=== PATIENT | male | born 1945 | race Caucasian/White ===

== ENCOUNTER 2019-12-10 02:49 | Inpatient (IN) ==
[2019-12-10] MEDS: Nitroglycerin 0.4 MG TAB.SUBL SL PRN ×2 (02:50→02:51)
[2019-12-10] MEDS ORDERED: Nitroglycerin 0.4 MG TAB.SUBL SL ONE (02:50)
[2019-12-10] MEDS ORDERED: Isovue-370 500 ML BOTTLE IVP ONE (03:00)
[2019-12-10 03:11] LABS: Bilirubin,Urine Negative (Negative); Blood,Urine Negative (Negative); Clarity,Urine Clear (Clear); Color,Urine Yellow (Yellow); Glucose,Urine (UA) 250 mg/dL (Normal); Ketones,Urine Negative (Negative); Leukocyte Esterase,Urine Negative (Negative); Nitrite,Urine Negative (Negative); PH,Urine 7.5 pH Units (5.0-8.0); Protein,Urine 100 mg/dL (Neg-Trace); Urobilinogen,Urine Normal (Normal)
[2019-12-10 03:12] LABS: ABG Base Excess -4 mEq/L (-2 to 3); ABG HCO3 22 mEq/L (21-27); ABG Oxygen Saturation 99 % (95-98); ABG PCO2 41 mmHg (35-45); ABG PH 7.34 pH Units (7.32-7.45); ABG PO2 140 mmHg (85-104); ABG TCO2 23 mEq/L (20-26); Blood Gas Modality BiLevel
[2019-12-10 03:13] LABS: Squamous Epithelial Cell,Urine Many per lpf (None-Few)
[2019-12-10 03:18] LABS: Basophils # 0.1 K/mcL (0.0-0.2); Basophils % 0.4 %; Eosinophils # 0.2 K/mcL (0.0-0.6); Eosinophils % 0.9 %; Hematocrit 45.4 % (37.5-50.1); Hemoglobin 15.7 g/dL (12.9-16.9); Lymphocytes # 5.2 K/mcL (0.6-4.6); Lymphocytes % 26.5 %; Mean Corpuscular HGB Conc 34.6 g/dL (31.6-35.5); Mean Corpuscular Hemoglobin 31.7 pg (28.0-33.3); Mean Corpuscular Volume 91.7 fL (83.0-100.0); Mean Platelet Volume 10.5 fL (9.4-12.4); Monocytes # 1.2 K/mcL (0.0-1.3); Monocytes % 5.9 %; Neutrophils # 12.9 K/mcL (1.6-8.9); Nucleated Red Blood Cells 0.1 /100 WBC (0); Platelet Count 379 K/mcL (140-400); Red Blood Count 4.95 M/mcL (4.19-5.50); Red Cell Distribution Width 14.7 % (11.5-14.5); Segmented Neutrophils % 65.3 %; White Blood Count 19.6 K/mcL (4.3-11.1)
[2019-12-10 03:21] LABS: INR 1.9; Prothrombin Time 21.1 Seconds (9.4-12.1)
[2019-12-10 03:23] LABS: Bacteria,Urine Few per hpf (None-Few); Hyaline Casts,Urine Few per lpf (None-Few); Transitional Epi Cells,Urine Few per hpf (None-Few)
[2019-12-10 03:24] LABS: Activated Partial Thrombo Time 36.5 Seconds (26.0-36.0)
[2019-12-10] MEDS ORDERED: cefTRIAXone 1,000 MG in Water for inj. (sterile) 10 ML IVP ONE (03:29)
[2019-12-10] MEDS ORDERED: Azithromycin 500 MG in 0.9 % Sodium Chloride 250 ML IVPB ONE (03:30)
[2019-12-10] MEDS ORDERED: Furosemide 40 MG/4 ML VIAL IVP ONE (03:35)
[2019-12-10] MEDS ORDERED: Aspirin 325 MG TABLET PO ONE (03:39)
[2019-12-10 03:40] LABS: Alanine Aminotransferase 13 Units/L (7-52); Albumin/Globulin Ratio 1.3 (1.1-2.2); Alkaline Phosphatase 55 Units/L (34-104); Aspartate Amino Transferase 18 Units/L (13-39); BUN/Creatinine Ratio 18 (6-26); Bilirubin,Direct 0.2 mg/dL (0.0-0.2); Bilirubin,Indirect 0.5 mg/dL (0.0-1.0); Bilirubin,Total 0.7 mg/dL (0.3-1.0); Blood Urea Nitrogen 18 mg/dL (8-23); Calcium 8.6 mg/dL (8.6-10.3); Carbon Dioxide 21 mEq/L (23-29); Chloride 98 mEq/L (98-107); Creatine Kinase 149 Units/L (30-223); Globulin 3.1 g/dL (2.4-3.5); Glucose 342 mg/dL (70-105); Osmolality,Calculated 295 (280-300); Potassium 4.2 mEq/L (3.5-5.1); Sodium 135 mEq/L (136-145); Total Protein 7.1 g/dL (6.4-8.9); Troponin I 0.03 ng/mL (< 0.04); eGFR For African Americans > 60 (> 60); eGFR For Non-African Americans > 60 (> 60)
[2019-12-10] MEDS ORDERED: 0.9 % Sodium Chloride 250 ML ONE (04:03)
[2019-12-10] MEDS ORDERED: Dextrose Gel 15 GM/37.5 ML TUBE PO PRN ×2 (06:39)
[2019-12-10] MEDS ORDERED: D5% in Water 1,000 ML IVC PRN (06:39)
[2019-12-10] MEDS ORDERED: *HR* Dextrose 50 % in Water (Syg) 50 ML SYRINGE IVP PRN (06:39)
[2019-12-10] MEDS ORDERED: *HR* Heparin 5,000 UNIT/ML VIAL SQ SCH (07:00)
[2019-12-10] MEDS: Insulin LISPRO 300 UNITS/3 ML VIAL SQ SCH ×3 (08:44→17:49)
[2019-12-10] MEDS ORDERED: Furosemide 20 MG/2 ML VIAL IVP SCH (09:00)
[2019-12-10] MEDS ORDERED: *HR* Heparin 5,000 UNIT/ML VIAL IVP PRN ×2 (10:28)
[2019-12-10] MEDS ORDERED: Heparin 25,000 UNIT/250 ML D5W 25,000 UNIT/250 ML IV.SOLN IVC SCH ×2 (10:30→11:23)
[2019-12-10 11:25] LABS: Heparin anti-factor XA UFH 0.59 IU/mL (0.30-0.70)
[2019-12-10 11:26] LABS: INR 1.5; Prothrombin Time 17.1 Seconds (9.4-12.1)
[2019-12-10] MEDS ORDERED: Insulin LISPRO 300 UNITS/3 ML VIAL SQ SCH (12:00)
[2019-12-10 12:56] LABS: Hematocrit 38.6 % (37.5-50.1); Hemoglobin 13.9 g/dL (12.9-16.9); Mean Corpuscular Hemoglobin 31.8 pg (28.0-33.3); Mean Corpuscular Volume 88.3 fL (83.0-100.0); Mean Platelet Volume 9.9 fL (9.4-12.4); Platelet Count 227 K/mcL (140-400); Red Blood Count 4.37 M/mcL (4.19-5.50); Red Cell Distribution Width 14.6 % (11.5-14.5); White Blood Count 7.6 K/mcL (4.3-11.1)
[2019-12-10] MEDS ORDERED: Perflutren Lipid Microsphere 1.3 ML in 0.9 % Sodium Chloride 8.7 ML IVP ONE (15:26)
[2019-12-10] MEDS ORDERED: Baclofen 10 MG TABLET PO PRN (17:07)
[2019-12-10] MEDS ORDERED: ALPRAZolam 1 MG TABLET PO PRN (17:07)
[2019-12-10] MEDS: *HR* Rivaroxaban 10 MG TABLET PO SCH (18:22)
[2019-12-10] MEDS: carvediloL 6.25 MG TABLET PO SCH (18:22)
[2019-12-10] MEDS: Furosemide 40 MG/4 ML VIAL IVP SCH (20:52)
[2019-12-11] MEDS: Insulin LISPRO 300 UNITS/3 ML VIAL SQ SCH ×5 (01:41→21:54)
[2019-12-11 02:55] LABS: Basophils % 0.1 %; Eosinophils % 0.3 %; Hematocrit 36.4 % (37.5-50.1); Hemoglobin 12.8 g/dL (12.9-16.9); Immature Granulocytes % 0.4 % (0-4); Lymphocytes # 1.1 K/mcL (0.6-4.6); Lymphocytes % 16.6 %; Mean Corpuscular HGB Conc 35.2 g/dL (31.6-35.5); Mean Corpuscular Hemoglobin 31.8 pg (28.0-33.3); Mean Corpuscular Volume 90.3 fL (83.0-100.0); Mean Platelet Volume 10.6 fL (9.4-12.4); Monocytes # 0.4 K/mcL (0.0-1.3); Monocytes % 5.8 %; Neutrophils # 5.3 K/mcL (1.6-8.9); Platelet Count 199 K/mcL (140-400); Red Blood Count 4.03 M/mcL (4.19-5.50); Red Cell Distribution Width 14.8 % (11.5-14.5); Segmented Neutrophils % 76.8 %; White Blood Count 6.9 K/mcL (4.3-11.1)
[2019-12-11 03:14] LABS: Alanine Aminotransferase 10 Units/L (7-52); Albumin 3.4 g/dL (3.5-5.7); Albumin/Globulin Ratio 1.2 (1.1-2.2); Alkaline Phosphatase 37 Units/L (34-104); Aspartate Amino Transferase 13 Units/L (13-39); BUN/Creatinine Ratio 24 (6-26); Blood Urea Nitrogen 25 mg/dL (8-23); Calcium 8.4 mg/dL (8.6-10.3); Carbon Dioxide 26 mEq/L (23-29); Chloride 103 mEq/L (98-107); Globulin 2.8 g/dL (2.4-3.5); Glucose 226 mg/dL (70-105); Osmolality,Calculated 293 (280-300); Potassium 3.8 mEq/L (3.5-5.1); Sodium 136 mEq/L (136-145); Total Protein 6.2 g/dL (6.4-8.9); eGFR For African Americans > 60 (> 60); eGFR For Non-African Americans > 60 (> 60)
[2019-12-11] MEDS ORDERED: Azithromycin 500 MG in 0.9 % Sodium Chloride 250 ML IVPB SCH (05:00)
[2019-12-11] MEDS ORDERED: cefTRIAXone 1,000 MG in 0.9 % Sodium Chloride Mini Bag 100 ML IVPB SCH (09:00)
[2019-12-11] MEDS: Furosemide 40 MG/4 ML VIAL IVP SCH (09:27)
[2019-12-11] MEDS: carvediloL 6.25 MG TABLET PO SCH ×2 (09:29→17:55)
[2019-12-11] MEDS: Folic Acid 1 MG TABLET PO SCH (09:29)
[2019-12-11] MEDS: Aspirin Enteric Coated 81 MG Tablet PO SCH (09:29)
[2019-12-11] MEDS ORDERED: Aminoglycoside Consult 1 EACH MC ONE (13:29)
[2019-12-11] MEDS: Budesonide/Formoterol 160/4.5 1 PUFF INH IH SCH ×2 (15:29→21:56)
[2019-12-11] MEDS ORDERED: Isovue-370 500 ML BOTTLE IVP ONE (15:57)
[2019-12-11] MEDS: Piperacillin/Tazobactam 3.375 GM in 0.9 % Sodium Chloride Mini Bag 100 ML IVPB SCH (17:52)
[2019-12-11] MEDS: *HR* Rivaroxaban 10 MG TABLET PO SCH (18:11)
[2019-12-12] MEDS: Piperacillin/Tazobactam 3.375 GM in 0.9 % Sodium Chloride Mini Bag 100 ML IVPB SCH ×4 (01:08→23:54)
[2019-12-12 02:47] LABS: BUN/Creatinine Ratio 31 (6-26); Blood Urea Nitrogen 29 mg/dL (8-23); Calcium 8.7 mg/dL (8.6-10.3); Carbon Dioxide 22 mEq/L (23-29); Chloride 105 mEq/L (98-107); Glucose 189 mg/dL (70-105); Osmolality,Calculated 295 (280-300); Potassium 4.1 mEq/L (3.5-5.1); Sodium 137 mEq/L (136-145); eGFR For African Americans > 60 (> 60); eGFR For Non-African Americans > 60 (> 60)
[2019-12-12 02:52] LABS: Hematocrit 35.4 % (37.5-50.1); Mean Corpuscular HGB Conc 33.9 g/dL (31.6-35.5); Mean Corpuscular Volume 94.4 fL (83.0-100.0); Mean Platelet Volume 10.7 fL (9.4-12.4); Platelet Count 200 K/mcL (140-400); Red Blood Count 3.75 M/mcL (4.19-5.50); Red Cell Distribution Width 14.6 % (11.5-14.5)
[2019-12-12] MEDS: Budesonide/Formoterol 160/4.5 1 PUFF INH IH SCH ×2 (07:32→22:08)
[2019-12-12] MEDS: Insulin LISPRO 300 UNITS/3 ML VIAL SQ SCH ×4 (08:01→21:41)
[2019-12-12] MEDS: carvediloL 6.25 MG TABLET PO SCH ×2 (08:08→16:54)
[2019-12-12] MEDS ORDERED: *HR* Propofol 200 MG/20 ML VIAL IVP ONE ×2 (09:36→09:53)
[2019-12-12] MEDS ORDERED: Lidocaine -MPF 2% 2 ML VIAL ONE (09:37)
[2019-12-12] MEDS ORDERED: Lidocaine -MPF 4% 5 ML AMPUL ONE (09:49)
[2019-12-12] MEDS ORDERED: *HR* EPINEPHrine 1 MG/10 ML SYRINGE IVP ONE (10:32)
[2019-12-12] MEDS ORDERED: *HR* EPINEPHrine 1 MG/10 ML SYRINGE INTRATRACH ONE (10:45)
[2019-12-12] MEDS: Furosemide 20 MG TABLET PO SCH (12:07)
[2019-12-12] MEDS: Aspirin Enteric Coated 81 MG Tablet PO SCH (12:07)
[2019-12-12] MEDS: Folic Acid 1 MG TABLET PO SCH (12:07)
[2019-12-12 14:26] LABS: Source of Body Fluid LEFT UPPER LOBE LUNG
[2019-12-12] MEDS: *HR* Rivaroxaban 10 MG TABLET PO SCH (16:53)
[2019-12-12 19:16] LABS: Source of Body Fluid RIGHT UPPER LOBE LUN
[2019-12-12 19:17] LABS: Appearance of Body Fluid Hazy (Clear); Volume of Body Fluid 16 mL
[2019-12-12 19:29] LABS: Appearance of Body Fluid Hazy (Clear); Volume of Body Fluid 20 mL
[2019-12-13 05:24] LABS: Adenovirus Not Detected (Not Detect); Bordetella Pertussis Not Detected (Not Detect); Chlamydophila pneumoniae Not Detected (Not Detect); Coronavirus 229E Not Detected (Not Detect); Coronavirus HKU1 Not Detected (Not Detect); Coronavirus NL63 Not Detected (Not Detect); Coronavirus OC43 Not Detected (Not Detect); Human Metapneumovirus Not Detected (Not Detect); Human Rhinovirus/Enterovirus Not Detected (Not Detect); Influenza A Subtype 2009 H1 Not Detected (Not Detect); Influenza B Not Detected (Not Detect); Mycoplasma pneumoniae Not Detected (Not Detect); Parainfluenza Virus 1 Not Detected (Not Detect); Parainfluenza Virus 2 Not Detected (Not Detect); Parainfluenza Virus 3 Not Detected (Not Detect); Parainfluenza Virus 4 Not Detected (Not Detect); Respiratory Syncytial Virus Not Detected (Not Detect)
[2019-12-13 05:32] LABS: Hematocrit 33.2 % (37.5-50.1); Hemoglobin 11.6 g/dL (12.9-16.9); Mean Corpuscular HGB Conc 34.9 g/dL (31.6-35.5); Mean Corpuscular Hemoglobin 31.5 pg (28.0-33.3); Mean Corpuscular Volume 90.2 fL (83.0-100.0); Mean Platelet Volume 10.7 fL (9.4-12.4); Platelet Count 226 K/mcL (140-400); Red Blood Count 3.68 M/mcL (4.19-5.50); Red Cell Distribution Width 14.5 % (11.5-14.5); White Blood Count 6.6 K/mcL (4.3-11.1)
[2019-12-13 05:48] LABS: BUN/Creatinine Ratio 32 (6-26); Blood Urea Nitrogen 25 mg/dL (8-23); Calcium 8.8 mg/dL (8.6-10.3); Carbon Dioxide 22 mEq/L (23-29); Chloride 107 mEq/L (98-107); Glucose 179 mg/dL (70-105); Osmolality,Calculated 299 (280-300); Sodium 140 mEq/L (136-145); eGFR For African Americans > 60 (> 60); eGFR For Non-African Americans > 60 (> 60)
[2019-12-13] MEDS: Budesonide/Formoterol 160/4.5 1 PUFF INH IH SCH (07:29)
[2019-12-13 07:40] VITALS: BP 128/81
[2019-12-13] MEDS: Folic Acid 1 MG TABLET PO SCH (09:22)
[2019-12-13] MEDS: carvediloL 6.25 MG TABLET PO SCH (09:23)
[2019-12-13] MEDS: Furosemide 20 MG TABLET PO SCH (09:23)
[2019-12-13] MEDS: Aspirin Enteric Coated 81 MG Tablet PO SCH (09:23)
[2019-12-13] MEDS: Insulin LISPRO 300 UNITS/3 ML VIAL SQ SCH (09:23)
== END 2019-12-13 13:30 | disposition home or self-care (01) | DRG 194 ==
LOC: 2NENU 02:49 → EMEROOARM 02:49 → SUATTDRO 06:04 → 2NENU 06:15
PROVIDERS: ADMIT Student in an Organized Health Care Education/Training Program; ATTEND Family Medicine

== ENCOUNTER 2020-01-12 16:17 | Inpatient (IN) ==
[2020-01-12] MEDS ORDERED: 0.9 % Sodium Chloride 500 ML IVC ONE (16:52)
[2020-01-12 17:44] LABS: Basophils % 0.2 %; Eosinophils # 0.2 K/mcL (0.0-0.6); Eosinophils % 3.4 %; Hematocrit 27.9 % (37.5-50.1); Hemoglobin 9.3 g/dL (12.9-16.9); Immature Granulocytes % 1.3 % (0-4); Lymphocytes # 1.4 K/mcL (0.6-4.6); Lymphocytes % 22.7 %; Mean Corpuscular HGB Conc 33.3 g/dL (31.6-35.5); Mean Platelet Volume 9.9 fL (9.4-12.4); Monocytes # 0.4 K/mcL (0.0-1.3); Platelet Count 310 K/mcL (140-400); Red Cell Distribution Width 14.9 % (11.5-14.5); Segmented Neutrophils % 65.4 %; White Blood Count 6.2 K/mcL (4.3-11.1)
[2020-01-12 17:45] LABS: Bilirubin,Urine Negative (Negative); Blood,Urine Negative (Negative); Clarity,Urine Clear (Clear); Color,Urine Yellow (Yellow); Glucose,Urine (UA) Normal (Normal); Ketones,Urine Negative (Negative); Leukocyte Esterase,Urine Negative (Negative); Nitrite,Urine Negative (Negative); PH,Urine 5.5 pH Units (5.0-8.0); Protein,Urine Negative (Neg-Trace); Specific Gravity,Urine 1.015 (1.010-1.025); Urobilinogen,Urine Normal (Normal)
[2020-01-12 17:47] LABS: INR 1.3
[2020-01-12 18:02] LABS: BUN/Creatinine Ratio 19 (6-26); Blood Urea Nitrogen 20 mg/dL (8-23); Calcium 9.3 mg/dL (8.6-10.3); Carbon Dioxide 23 mEq/L (23-29); Chloride 100 mEq/L (98-107); Glucose 165 mg/dL (70-105); Osmolality,Calculated 288 (280-300); Potassium 4.5 mEq/L (3.5-5.1); Sodium 136 mEq/L (136-145); eGFR For African Americans > 60 (> 60); eGFR For Non-African Americans > 60 (> 60)
[2020-01-12] MEDS ORDERED: Pantoprazole 40 MG VIAL IVP ONE (18:55)
[2020-01-12] MEDS: Pantoprazole 40 MG in 0.9 % Sodium Chloride Mini Bag 100 ML IVC SCH (19:19)
[2020-01-12 20:38] LABS: Alanine Aminotransferase 9 Units/L (7-52); Albumin 4.3 g/dL (3.5-5.7); Albumin/Globulin Ratio 1.6 (1.1-2.2); Alkaline Phosphatase 46 Units/L (34-104); Aspartate Amino Transferase 14 Units/L (13-39); Bilirubin,Direct 0.1 mg/dL (0.0-0.2); Bilirubin,Indirect 0.3 mg/dL (0.0-1.0); Bilirubin,Total 0.4 mg/dL (0.3-1.0); Globulin 2.7 g/dL (2.4-3.5)
[2020-01-12] MEDS ORDERED: Naloxone 0.4 MG/ML INJ IVP PRN (21:04)
[2020-01-12] MEDS ORDERED: Dextrose Gel 15 GM/37.5 ML TUBE PO PRN ×2 (21:25)
[2020-01-12] MEDS ORDERED: *HR* Dextrose 50 % in Water (Syg) 50 ML SYRINGE IVP PRN (21:25)
[2020-01-12] MEDS ORDERED: D5% in Water 1,000 ML IVC PRN (21:25)
[2020-01-12] MEDS ORDERED: Baclofen 10 MG TABLET PO PRN (21:25)
[2020-01-12] MEDS ORDERED: *HR* OxyCODONE/APAP 10/325 TABLET PO PRN (21:25)
[2020-01-12] MEDS ORDERED: ALPRAZolam 1 MG TABLET PO PRN (21:25)
[2020-01-12] MEDS ORDERED: 0.9 % Sodium Chloride 1,000 ML IVC SCH ×2 (22:30)
[2020-01-12] MEDS: Insulin DETEMIR 100 UNIT/ML X5UNITS SQ SCH (23:03)
[2020-01-13] MEDS: Pantoprazole 40 MG in 0.9 % Sodium Chloride Mini Bag 100 ML IVC SCH (00:21)
[2020-01-13 05:29] LABS: Basophils % 0.4 %; Eosinophils # 0.2 K/mcL (0.0-0.6); Eosinophils % 3.6 %; Hematocrit 24.9 % (37.5-50.1); Hemoglobin 8.6 g/dL (12.9-16.9); Immature Granulocytes % 1.2 % (0-4); Lymphocytes # 1.4 K/mcL (0.6-4.6); Lymphocytes % 27.1 %; Mean Corpuscular HGB Conc 34.5 g/dL (31.6-35.5); Mean Corpuscular Volume 92.6 fL (83.0-100.0); Mean Platelet Volume 9.6 fL (9.4-12.4); Monocytes # 0.4 K/mcL (0.0-1.3); Monocytes % 8.4 %; Platelet Count 254 K/mcL (140-400); Red Blood Count 2.69 M/mcL (4.19-5.50); Red Cell Distribution Width 15.1 % (11.5-14.5); Segmented Neutrophils % 59.3 %
[2020-01-13 05:40] LABS: BUN/Creatinine Ratio 19 (6-26); Blood Urea Nitrogen 20 mg/dL (8-23); Calcium 8.7 mg/dL (8.6-10.3); Carbon Dioxide 25 mEq/L (23-29); Chloride 105 mEq/L (98-107); Glucose 259 mg/dL (70-105); Osmolality,Calculated 296 (280-300); Potassium 4.4 mEq/L (3.5-5.1); Sodium 137 mEq/L (136-145); eGFR For African Americans > 60 (> 60); eGFR For Non-African Americans > 60 (> 60)
[2020-01-13 06:45] LABS: Estimated Average Glucose 186 mg/dl
[2020-01-13] MEDS ORDERED: carvediloL 6.25 MG TABLET PO SCH (08:00)
[2020-01-13] MEDS: Insulin LISPRO 300 UNITS/3 ML VIAL SQ SCH ×3 (08:06→17:18)
[2020-01-13] MEDS: Fluticasone Propionate Nasal 50 MCG/SPRAY BOTTLE NS SCH (08:07)
[2020-01-13] MEDS: Loratadine 10 MG TABLET PO SCH (08:09)
[2020-01-13] MEDS: Folic Acid 1 MG TABLET PO SCH (08:09)
[2020-01-13] MEDS: gemfibroziL 600 MG TABLET PO SCH ×2 (08:09→20:01)
[2020-01-13] MEDS: Vitamin E 200 UNIT (90MG) CAPSULE PO SCH ×2 (08:10→20:01)
[2020-01-13] MEDS: Ascorbic Acid 500 MG TABLET PO SCH ×2 (08:10→20:01)
[2020-01-13] MEDS: Cholecalciferol (D-3) 1,000 UNIT (25MCG) TABLET PO SCH (08:10)
[2020-01-13] MEDS: Pantoprazole 40 MG VIAL IVP SCH ×2 (08:10→20:01)
[2020-01-13] MEDS: Cyanocobalamin (B-12) 1,000 MCG TABLET PO SCH (08:10)
[2020-01-13] MEDS ORDERED: (Breo Ellipta 100-25 Mcg Inh) IH SCH (09:00)
[2020-01-13] MEDS ORDERED: NON-FORMULARY MEDICATION 1 EACH EACH (Omega-3/Dha/Epa/Fish Oil [Fish Oil 1,000 Mg Softgel] PO SCH (09:00)
[2020-01-13] MEDS ORDERED: lisinopriL 5 MG TABLET PO SCH (09:00)
[2020-01-13] MEDS ORDERED: Furosemide 20 MG TABLET PO SCH (09:00)
[2020-01-13] MEDS ORDERED: Aspirin Enteric Coated 81 MG Tablet PO SCH (09:00)
[2020-01-13] MEDS ORDERED: *HR* Rivaroxaban 10 MG TABLET PO SCH (09:00)
[2020-01-13 12:40] LABS: Hematocrit 27.9 % (37.5-50.1); Hemoglobin 9.4 g/dL (12.9-16.9)
[2020-01-13] MEDS ORDERED: 0.9 % Sodium Chloride 250 ML IVC ONE (14:12)
[2020-01-13 15:59] LABS: Hematocrit 27.9 % (37.5-50.1); Hemoglobin 9.3 g/dL (12.9-16.9)
[2020-01-13] MEDS ORDERED: SODIUM CHLORIDE/NAHCO3/KCL/PEG 4,000 ML SOLN.RECON PO ONE (17:00)
[2020-01-13 19:57] LABS: Hematocrit 32.2 % (37.5-50.1)
[2020-01-13] MEDS: rOPINIRole 1 MG TABLET PO SCH (20:01)
[2020-01-13] MEDS: Insulin DETEMIR 100 UNIT/ML X5UNITS SQ SCH (20:02)
[2020-01-13] MEDS: Budesonide/Formoterol 160/4.5 1 PUFF INH IH SCH (20:17)
[2020-01-14 05:36] LABS: Basophils % 0.3 %; Eosinophils # 0.2 K/mcL (0.0-0.6); Eosinophils % 2.9 %; Hematocrit 29.3 % (37.5-50.1); Hemoglobin 9.8 g/dL (12.9-16.9); Immature Granulocytes % 0.5 % (0-4); Lymphocytes # 1.5 K/mcL (0.6-4.6); Lymphocytes % 24.2 %; Mean Corpuscular HGB Conc 33.4 g/dL (31.6-35.5); Mean Corpuscular Hemoglobin 30.9 pg (28.0-33.3); Mean Corpuscular Volume 92.4 fL (83.0-100.0); Mean Platelet Volume 9.7 fL (9.4-12.4); Monocytes # 0.5 K/mcL (0.0-1.3); Monocytes % 8.7 %; Neutrophils # 3.9 K/mcL (1.6-8.9); Nucleated Red Blood Cells 0.3 /100 WBC (0); Platelet Count 317 K/mcL (140-400); Red Blood Count 3.17 M/mcL (4.19-5.50); Red Cell Distribution Width 15.1 % (11.5-14.5); Segmented Neutrophils % 63.4 %; White Blood Count 6.1 K/mcL (4.3-11.1)
[2020-01-14 05:53] LABS: BUN/Creatinine Ratio 12 (6-26); Blood Urea Nitrogen 10 mg/dL (8-23); Calcium 9.4 mg/dL (8.6-10.3); Carbon Dioxide 23 mEq/L (23-29); Chloride 106 mEq/L (98-107); Glucose 72 mg/dL (70-105); Osmolality,Calculated 282 (280-300); Sodium 137 mEq/L (136-145); eGFR For African Americans > 60 (> 60); eGFR For Non-African Americans > 60 (> 60)
[2020-01-14] MEDS: Budesonide/Formoterol 160/4.5 1 PUFF INH IH SCH ×2 (07:19→19:58)
[2020-01-14] MEDS ORDERED: carvediloL 6.25 MG TABLET PO SCH (08:00)
[2020-01-14] MEDS: Fluticasone Propionate Nasal 50 MCG/SPRAY BOTTLE NS SCH (08:10)
[2020-01-14] MEDS: Folic Acid 1 MG TABLET PO SCH (08:11)
[2020-01-14] MEDS: Loratadine 10 MG TABLET PO SCH (08:11)
[2020-01-14] MEDS: Insulin LISPRO 300 UNITS/3 ML VIAL SQ SCH ×3 (08:11→17:07)
[2020-01-14] MEDS: gemfibroziL 600 MG TABLET PO SCH ×2 (08:11→20:03)
[2020-01-14] MEDS: Ascorbic Acid 500 MG TABLET PO SCH ×2 (08:12→20:04)
[2020-01-14] MEDS: Vitamin E 200 UNIT (90MG) CAPSULE PO SCH ×2 (08:12→20:04)
[2020-01-14] MEDS: Cyanocobalamin (B-12) 1,000 MCG TABLET PO SCH (08:12)
[2020-01-14] MEDS: Pantoprazole 40 MG VIAL IVP SCH ×2 (08:12→20:04)
[2020-01-14] MEDS: Cholecalciferol (D-3) 1,000 UNIT (25MCG) TABLET PO SCH (08:13)
[2020-01-14] MEDS ORDERED: D5% in Lactated Ringers 1,000 ML IVC SCH (10:30)
[2020-01-14] MEDS ORDERED: D5 IVC SCH (10:45)
[2020-01-14] MEDS ORDERED: D5% in Lactated Ringers 500 ML IVC SCH (10:45)
[2020-01-14] MEDS ORDERED: LACTATED RINGERS IVC SCH (10:45)
[2020-01-14] MEDS: lisinopriL 5 MG TABLET PO SCH ×2 (12:01→20:05)
[2020-01-14] MEDS ORDERED: *HR* Propofol 200 MG/20 ML VIAL IVP ONE (12:33)
[2020-01-14] MEDS ORDERED: Lidocaine -MPF 2% 2 ML VIAL ONE (12:33)
[2020-01-14] MEDS: carvediloL 6.25 MG TABLET PO SCH (17:06)
[2020-01-14 17:20] LABS: Hematocrit 31.3 % (37.5-50.1); Hemoglobin 10.1 g/dL (12.9-16.9)
[2020-01-14] MEDS: rOPINIRole 1 MG TABLET PO SCH (20:03)
[2020-01-14] MEDS: Insulin DETEMIR 100 UNIT/ML X5UNITS SQ SCH (20:04)
[2020-01-15] MEDS: carvediloL 6.25 MG TABLET PO SCH (07:49)
[2020-01-15] MEDS: Vitamin E 200 UNIT (90MG) CAPSULE PO SCH (07:49)
[2020-01-15] MEDS: gemfibroziL 600 MG TABLET PO SCH (07:49)
[2020-01-15] MEDS: Cholecalciferol (D-3) 1,000 UNIT (25MCG) TABLET PO SCH (07:49)
[2020-01-15] MEDS: Cyanocobalamin (B-12) 1,000 MCG TABLET PO SCH (07:50)
[2020-01-15] MEDS: Ascorbic Acid 500 MG TABLET PO SCH (07:50)
[2020-01-15] MEDS: Folic Acid 1 MG TABLET PO SCH (07:50)
[2020-01-15] MEDS: lisinopriL 5 MG TABLET PO SCH (07:50)
[2020-01-15] MEDS: Pantoprazole 40 MG VIAL IVP SCH (07:50)
[2020-01-15] MEDS: Loratadine 10 MG TABLET PO SCH (07:50)
[2020-01-15] MEDS: Insulin LISPRO 300 UNITS/3 ML VIAL SQ SCH (07:54)
[2020-01-15] MEDS: Fluticasone Propionate Nasal 50 MCG/SPRAY BOTTLE NS SCH (07:55)
[2020-01-15 10:29] VITALS: BP 104/58
== END 2020-01-15 11:19 | disposition home or self-care (01) ==
LOC: 3ANU 16:17 → EMEROOARM 16:17 → SUATTDRO 21:07 → 3ANU 21:55
PROVIDERS: ADMIT Student in an Organized Health Care Education/Training Program; ATTEND Internal Medicine

== ENCOUNTER 2021-03-11 17:09 | Observation (INO) ==
[2021-03-11 17:53] LABS: Basophils % 0.3 %; Eosinophils # 0.1 K/mcL (0.0-0.6); Eosinophils % 1.3 %; Hematocrit 39.7 % (37.5-50.1); Hemoglobin 13.6 g/dL (12.9-16.9); Immature Granulocytes % 0.5 % (0-4); Lymphocytes % 10.9 %; Mean Corpuscular HGB Conc 34.3 g/dL (31.6-35.5); Mean Corpuscular Hemoglobin 31.6 pg (28.0-33.3); Mean Corpuscular Volume 92.1 fL (83.0-100.0); Mean Platelet Volume 10.1 fL (9.4-12.4); Monocytes # 0.9 K/mcL (0.0-1.3); Monocytes % 9.3 %; Neutrophils # 7.2 K/mcL (1.6-8.9); Platelet Count 238 K/mcL (140-400); Red Blood Count 4.31 M/mcL (4.19-5.50); Red Cell Distribution Width 14.4 % (11.5-14.5); Segmented Neutrophils % 77.7 %; White Blood Count 9.3 K/mcL (4.3-11.1)
[2021-03-11 18:13] LABS: BUN/Creatinine Ratio 14 (6-26); Blood Urea Nitrogen 14 mg/dL (8-23); Calcium 9.2 mg/dL (8.6-10.3); Carbon Dioxide 22 mEq/L (23-29); Chloride 97 mEq/L (98-107); Glucose 368 mg/dL (70-105); Osmolality,Calculated 293 (280-300); Potassium 3.8 mEq/L (3.5-5.1); Sodium 134 mEq/L (136-145); eGFR For African Americans > 60 (> 60); eGFR For Non-African Americans > 60 (> 60)
[2021-03-11 18:14] LABS: Troponin I 0.03 ng/mL (< 0.04)
[2021-03-11] MEDS ORDERED: *HR* OxyCODONE/APAP 10/325 TABLET PO PRN (20:06)
[2021-03-11] MEDS ORDERED: *HR* Dextrose 50 % in Water (Vial) 50 ML VIAL IVP PRN (20:10)
[2021-03-11] MEDS ORDERED: Dextrose Gel 15 GM/37.5 ML TUBE PO PRN ×2 (20:10)
[2021-03-11] MEDS ORDERED: D5% in Water 1,000 ML IVC PRN (20:10)
[2021-03-11] MEDS ORDERED: Melatonin 3 MG TABLET PO PRN (20:12)
[2021-03-11] MEDS ORDERED: Naloxone 0.4 MG/ML INJ IVP PRN (20:12)
[2021-03-11] MEDS ORDERED: Nitroglycerin 0.4 MG TAB.SUBL SL PRN (20:12)
[2021-03-11] MEDS ORDERED: Ondansetron 4 MG/2 ML VIAL IVP PRN (20:12)
[2021-03-11] MEDS ORDERED: Insulin LISPRO 300 UNITS/3 ML VIAL SUBQ SCH (21:00)
[2021-03-11] MEDS ORDERED: Albuterol 2.5 MG/3 ML NEBULIZER IH PRN (21:00)
[2021-03-11] MEDS ORDERED: methylPREDNISolone 125 MG/2 ML VIAL IVP ONE (21:00)
[2021-03-11] MEDS ORDERED: Insulin DETEMIR 100 UNIT/ML X5UNITS SUBQ SCH (21:00)
[2021-03-11] MEDS ORDERED: Baclofen 10 MG TABLET PO PRN (21:02)
[2021-03-11] MEDS ORDERED: rOPINIRole 1 MG TABLET PO SCH (21:15)
[2021-03-11] MEDS ORDERED: ALPRAZolam 1 MG TABLET PO PRN (21:17)
[2021-03-11] MEDS: gemfibroziL 600 MG TABLET PO SCH (21:45)
[2021-03-11] MEDS: Azithromycin 250 MG TABLET PO SCH (22:54)
[2021-03-12] MEDS: Albuterol 2.5 MG/3 ML NEBULIZER IH SCH ×4 (00:30→11:44)
[2021-03-12] MEDS ORDERED: *HR* Heparin 5,000 UNIT/ML VIAL IVP PRN ×6 (00:57→08:50)
[2021-03-12] MEDS ORDERED: *HR* Heparin 5,000 UNIT/ML VIAL IVP ONE ×2 (00:57→01:13)
[2021-03-12 03:07] LABS: Basophils % 0.2 %; Eosinophils % 0.2 %; Hematocrit 39.5 % (37.5-50.1); Hemoglobin 13.5 g/dL (12.9-16.9); Immature Granulocytes % 0.4 % (0-4); Lymphocytes # 0.5 K/mcL (0.6-4.6); Lymphocytes % 9.5 %; Mean Corpuscular HGB Conc 34.2 g/dL (31.6-35.5); Mean Corpuscular Hemoglobin 31.5 pg (28.0-33.3); Mean Corpuscular Volume 92.3 fL (83.0-100.0); Mean Platelet Volume 9.9 fL (9.4-12.4); Monocytes # 0.1 K/mcL (0.0-1.3); Monocytes % 1.1 %; Neutrophils # 4.7 K/mcL (1.6-8.9); Platelet Count 222 K/mcL (140-400); Red Blood Count 4.28 M/mcL (4.19-5.50); Red Cell Distribution Width 14.4 % (11.5-14.5); Segmented Neutrophils % 88.6 %; White Blood Count 5.3 K/mcL (4.3-11.1)
[2021-03-12 03:17] LABS: INR 1.2; Prothrombin Time 14.3 Seconds (9.4-12.1)
[2021-03-12 03:27] LABS: BUN/Creatinine Ratio 19 (6-26); Blood Urea Nitrogen 15 mg/dL (8-23); Calcium 9.4 mg/dL (8.6-10.3); Carbon Dioxide 23 mEq/L (23-29); Chloride 101 mEq/L (98-107); Chol/HDL Ratio 4.2 (0-4.9); Cholesterol 158 mg/dL (< 200); Glucose 331 mg/dL (70-105); HDL Cholesterol 38 mg/dL (40-59); LDL Cholesterol,Calculated 99 mg/dL (< 100); Osmolality,Calculated 290 (280-300); Potassium 4.3 mEq/L (3.5-5.1); Sodium 133 mEq/L (136-145); Triglycerides 107 mg/dL (< 150); eGFR For African Americans > 60 (> 60); eGFR For Non-African Americans > 60 (> 60)
[2021-03-12] MEDS ORDERED: Heparin 25,000UNIT/250ML 1/2NS 25,000 UNIT/250 ML IV.SOLN IVC SCH ×3 (06:00→09:00)
[2021-03-12] MEDS: gemfibroziL 600 MG TABLET PO SCH (08:18)
[2021-03-12] MEDS: Azithromycin 250 MG TABLET PO SCH (08:18)
[2021-03-12] MEDS: Insulin LISPRO 300 UNITS/3 ML VIAL SUBQ SCH ×2 (08:22→12:07)
[2021-03-12] MEDS ORDERED: Perflutren Lipid Microsphere 1.3 ML in 0.9 % Sodium Chloride 8.7 ML IVP PRN (08:48)
[2021-03-12] MEDS ORDERED: Loratadine 10 MG TABLET PO SCH (09:00)
[2021-03-12] MEDS ORDERED: Furosemide 20 MG TABLET PO SCH (09:00)
[2021-03-12] MEDS ORDERED: predniSONE 20 MG TABLET PO SCH (09:00)
[2021-03-12] MEDS ORDERED: Fluticasone Propionate Nasal 50 MCG/SPRAY BOTTLE NS SCH (09:00)
[2021-03-12] MEDS ORDERED: Ascorbic Acid 500 MG TABLET PO SCH (09:00)
[2021-03-12] MEDS ORDERED: Cyanocobalamin (B-12) 1,000 MCG TABLET PO SCH (09:00)
[2021-03-12] MEDS ORDERED: *HR* Rivaroxaban 10 MG TABLET PO SCH (09:00)
[2021-03-12] MEDS ORDERED: Folic Acid 1 MG TABLET PO SCH (09:00)
[2021-03-12] MEDS ORDERED: Aspirin Enteric Coated 81 MG Tablet PO SCH (09:00)
[2021-03-12] MEDS ORDERED: lisinopriL 5 MG TABLET PO SCH (09:00)
[2021-03-12] MEDS ORDERED: carvediloL 25 MG TABLET PO SCH (09:00)
[2021-03-12] MEDS ORDERED: Budesonide/Formoterol 160/4.5 1 PUFF INH IH SCH (10:00)
[2021-03-12 10:01] LABS: Estimated Average Glucose 180 mg/dl; Hemoglobin A1C 7.9 %
[2021-03-12 10:06] LABS: Troponin I 0.08 ng/mL (< 0.04)
[2021-03-12 10:17] LABS: Adenovirus Not Detected (Not Detect); Bordetella Pertussis Not Detected (Not Detect); Chlamydophila pneumoniae Not Detected (Not Detect); Coronavirus 229E Not Detected (Not Detect); Coronavirus HKU1 Not Detected (Not Detect); Coronavirus NL63 Not Detected (Not Detect); Coronavirus OC43 Not Detected (Not Detect); Human Metapneumovirus Not Detected (Not Detect); Human Rhinovirus/Enterovirus DETECTED (Not Detect); Influenza A Subtype 2009 H1 Not Detected (Not Detect); Influenza B Not Detected (Not Detect); Mycoplasma pneumoniae Not Detected (Not Detect); Parainfluenza Virus 1 Not Detected (Not Detect); Parainfluenza Virus 2 Not Detected (Not Detect); Parainfluenza Virus 3 Not Detected (Not Detect); Parainfluenza Virus 4 Not Detected (Not Detect); Respiratory Syncytial Virus Not Detected (Not Detect); SARS-CoV-2 Not Detected (Not Detect)
[2021-03-12 10:41] LABS: Thyroid Stimulating Hormone 0.807 mcIU/mL (0.340-5.600)
[2021-03-12 11:32] VITALS: BP 100/52
[2021-03-12] MEDS ORDERED: Insulin DETEMIR 100 UNIT/ML X5UNITS SUBQ ONE (12:13)
[2021-03-12] MEDS ORDERED: Aspirin 81 MG TAB.CHEW PO SCH (12:30)
== END 2021-03-12 15:42 | disposition home or self-care (01) ==
LOC: EMEROOARM 17:09 → 3BNU 17:09 → SUATTDRO 19:25 → 3BNU 20:08
PROVIDERS: ADMIT Family Medicine; ATTEND Internal Medicine

== ENCOUNTER 2022-07-22 15:41 | Inpatient (IN) ==
[2022-07-22] MEDS ORDERED: *HR* Dextrose 50 % in Water (Syg) 50 ML SYRINGE ONE (15:47)
[2022-07-22] MEDS ORDERED: methylPREDNISolone 125 MG in 0.9 % Sodium Chloride 100 ML IVPB ONE (15:58)
[2022-07-22] MEDS ORDERED: levoFLOXacin 750 MG/150 ML 750 MG/150 ML BAG IVPB ONE (15:58)
[2022-07-22] MEDS ORDERED: Ipratropium/Albuterol Neb 3 ML IH ONE (15:58)
[2022-07-22] MEDS ORDERED: methylPREDNISolone 125 MG/2 ML VIAL IVP ONE (16:15)
[2022-07-22] MEDS: 0.9 % Sodium Chloride 1,000 ML IVC SCH (16:24)
[2022-07-22 16:32] LABS: Basophils % 0.3 %; Eosinophils % 0.1 %; Hemoglobin 14.3 g/dL (12.9-16.9); Immature Granulocytes % 0.4 % (0-4); Lymphocytes # 1.3 K/mcL (0.6-4.6); Lymphocytes % 13.7 %; Mean Corpuscular Hemoglobin 31.1 pg (28.0-33.3); Mean Corpuscular Volume 91.3 fL (83.0-100.0); Mean Platelet Volume 9.3 fL (9.4-12.4); Monocytes # 0.6 K/mcL (0.0-1.3); Monocytes % 6.5 %; Neutrophils # 7.5 K/mcL (1.6-8.9); Platelet Count 325 K/mcL (140-400); Red Cell Distribution Width 15.7 % (11.5-14.5); White Blood Count 9.5 K/mcL (4.3-11.1)
[2022-07-22 16:50] LABS: INR 1.9; Prothrombin Time 21.4 Seconds (9.4-12.1)
[2022-07-22 16:53] LABS: Activated Partial Thrombo Time 39.1 Seconds (26.0-36.0)
[2022-07-22 17:04] LABS: Alanine Aminotransferase 8 Units/L (7-52); Albumin 3.9 g/dL (3.5-5.7); Albumin/Globulin Ratio 1.3 (1.1-2.2); Alkaline Phosphatase 74 Units/L (34-104); Aspartate Amino Transferase 13 Units/L (13-39); BUN/Creatinine Ratio 14 (6-26); Bilirubin,Direct 0.4 mg/dL (0.0-0.2); Bilirubin,Indirect 0.8 mg/dL (0.0-1.0); Bilirubin,Total 1.2 mg/dL (0.3-1.0); Blood Urea Nitrogen 9 mg/dL (8-23); Calcium 8.8 mg/dL (8.6-10.3); Carbon Dioxide 23 mEq/L (23-29); Chloride 101 mEq/L (98-107); Globulin 3.1 g/dL (2.4-3.5); Glucose 40 mg/dL (70-105); Magnesium 1.4 mg/dL (1.6-2.6); Osmolality,Calculated 273 (280-300); Phosphorous 3.7 mg/dL (2.7-4.5); Potassium 3.2 mEq/L (3.5-5.1); Sodium 134 mEq/L (136-145); Troponin I 0.04 ng/mL (< 0.04)
[2022-07-22] MEDS ORDERED: *HR* Dextrose 50 % in Water (Syg) 50 ML SYRINGE IVP ONE (17:04)
[2022-07-22 17:23] LABS: Influenza A PCR Negative (Negative); Influenza B PCR Negative (Negative); Resp. Syncytial Virus PCR Negative (Negative)
[2022-07-22 17:24] LABS: SARS-CoV-2 by PCR (In House) Negative (Negative)
[2022-07-22] MEDS ORDERED: Ondansetron 4 MG/2 ML VIAL IVP PRN (17:46)
[2022-07-22] MEDS ORDERED: Naloxone 0.4 MG/ML INJ IVP PRN (17:46)
[2022-07-22] MEDS ORDERED: Dextrose Gel 15 GM/37.5 ML TUBE PO PRN ×2 (17:52)
[2022-07-22] MEDS ORDERED: D5% in Water 1,000 ML IVC PRN (17:52)
[2022-07-22] MEDS ORDERED: Furosemide 40 MG/4 ML VIAL IVP ONE (18:09)
[2022-07-22 19:53] LABS: Bilirubin,Urine Negative (Negative); Blood,Urine Negative (Negative); Clarity,Urine Clear (Clear); Color,Urine Light-Yellow (Yellow); Glucose,Urine (UA) 30 mg/dL (Normal); Ketones,Urine Negative (Negative); Leukocyte Esterase,Urine Negative (Negative); Nitrite,Urine Negative (Negative); PH,Urine 6.5 pH Units (5.0-8.0); Protein,Urine 30 mg/dL (Neg-Trace); RBC,Urine 0-3 per hpf (0-3); Specific Gravity,Urine 1.009 (1.010-1.025); Squamous Epithelial Cell,Urine Few per hpf (None-Few); Urobilinogen,Urine Normal (Normal); WBC,Urine 0-3 per hpf (0-3)
[2022-07-22] MEDS: *HR* Dextrose 50 % in Water (Syg) 50 ML SYRINGE IVP PRN ×3 (20:10→23:28)
[2022-07-22] MEDS ORDERED: D10% in Water 500 ML IVC SCH ×2 (20:15→20:31)
[2022-07-22] MEDS: Ipratropium/Albuterol Neb 3 ML IH SCH (22:42)
[2022-07-22 23:12] LABS: Estimated Average Glucose 171 mg/dl; Hemoglobin A1C 7.6 %
[2022-07-22] MEDS: MethylPREDNISolone 40 MG/ML VIAL IVP SCH (23:35)
[2022-07-23] MEDS: *HR* Dextrose 50 % in Water (Syg) 50 ML SYRINGE IVP PRN ×4 (00:13→12:45)
[2022-07-23] MEDS ORDERED: *HR* Dextrose 50 % in Water (Syg) 50 ML SYRINGE IVP ONE (01:44)
[2022-07-23 03:15] LABS: Basophils % 0.1 %; Hematocrit 37.4 % (37.5-50.1); Hemoglobin 12.8 g/dL (12.9-16.9); Immature Granulocytes % 0.3 % (0-4); Lymphocytes # 0.3 K/mcL (0.6-4.6); Lymphocytes % 3.6 %; Mean Corpuscular HGB Conc 34.2 g/dL (31.6-35.5); Mean Corpuscular Hemoglobin 30.4 pg (28.0-33.3); Mean Corpuscular Volume 88.8 fL (83.0-100.0); Mean Platelet Volume 9.1 fL (9.4-12.4); Monocytes # 0.3 K/mcL (0.0-1.3); Monocytes % 2.7 %; Neutrophils # 8.7 K/mcL (1.6-8.9); Platelet Count 185 K/mcL (140-400); Red Blood Count 4.21 M/mcL (4.19-5.50); Red Cell Distribution Width 15.2 % (11.5-14.5); Segmented Neutrophils % 93.3 %; White Blood Count 9.3 K/mcL (4.3-11.1)
[2022-07-23 03:25] LABS: INR 1.9; Prothrombin Time 21.6 Seconds (9.4-12.1)
[2022-07-23 03:36] LABS: BUN/Creatinine Ratio 13 (6-26); Blood Urea Nitrogen 9 mg/dL (8-23); Calcium 8.6 mg/dL (8.6-10.3); Carbon Dioxide 24 mEq/L (23-29); Chloride 102 mEq/L (98-107); Glucose 136 mg/dL (70-105); Magnesium 1.4 mg/dL (1.6-2.6); Osmolality,Calculated 283 (280-300); Phosphorous 3.1 mg/dL (2.7-4.5); Potassium 3.2 mEq/L (3.5-5.1); Sodium 136 mEq/L (136-145)
[2022-07-23 03:42] LABS: Troponin I 0.04 ng/mL (< 0.04)
[2022-07-23] MEDS: Ipratropium/Albuterol Neb 3 ML IH SCH ×4 (04:06→22:43)
[2022-07-23] MEDS: Furosemide 40 MG/4 ML VIAL IVP SCH ×2 (07:44→16:28)
[2022-07-23] MEDS: MethylPREDNISolone 40 MG/ML VIAL IVP SCH ×3 (07:44→23:14)
[2022-07-23] MEDS ORDERED: D10% in Water 500 ML IVC ONE (14:15)
[2022-07-23] MEDS: *HR* Rivaroxaban 10 MG TABLET PO SCH (16:26)
[2022-07-24 03:19] LABS: Basophils % 0.1 %; Hematocrit 39.3 % (37.5-50.1); Hemoglobin 13.2 g/dL (12.9-16.9); Immature Granulocytes % 0.1 % (0-4); Lymphocytes # 0.4 K/mcL (0.6-4.6); Lymphocytes % 5.2 %; Mean Corpuscular HGB Conc 33.6 g/dL (31.6-35.5); Mean Corpuscular Hemoglobin 30.3 pg (28.0-33.3); Mean Corpuscular Volume 90.3 fL (83.0-100.0); Mean Platelet Volume 9.6 fL (9.4-12.4); Monocytes # 0.3 K/mcL (0.0-1.3); Monocytes % 3.9 %; Neutrophils # 7.2 K/mcL (1.6-8.9); Platelet Count 218 K/mcL (140-400); Red Blood Count 4.35 M/mcL (4.19-5.50); Red Cell Distribution Width 15.2 % (11.5-14.5); Segmented Neutrophils % 90.7 %; White Blood Count 7.9 K/mcL (4.3-11.1)
[2022-07-24 03:27] LABS: INR 2.1; Prothrombin Time 23.1 Seconds (9.4-12.1)
[2022-07-24 03:37] LABS: BUN/Creatinine Ratio 23 (6-26); Blood Urea Nitrogen 18 mg/dL (8-23); Carbon Dioxide 25 mEq/L (23-29); Chloride 103 mEq/L (98-107); Glucose 309 mg/dL (70-105); Osmolality,Calculated 300 (280-300); Sodium 138 mEq/L (136-145)
[2022-07-24] MEDS: Ipratropium/Albuterol Neb 3 ML IH SCH ×4 (04:07→21:25)
[2022-07-24 06:15] LABS: Magnesium 2.3 mg/dL (1.6-2.6)
[2022-07-24] MEDS: MethylPREDNISolone 40 MG/ML VIAL IVP SCH ×2 (08:23→16:56)
[2022-07-24] MEDS: Furosemide 40 MG/4 ML VIAL IVP SCH ×2 (08:23→16:56)
[2022-07-24] MEDS ORDERED: Insulin LISPRO 300 UNITS/3 ML VIAL SUBQ SCH ×2 (12:00→21:00)
[2022-07-24] MEDS: Insulin LISPRO 300 UNITS/3 ML VIAL SUBQ SCH ×2 (16:57→20:28)
[2022-07-24] MEDS: *HR* Rivaroxaban 10 MG TABLET PO SCH (16:57)
[2022-07-24] MEDS ORDERED: *HR* OxyCODONE/APAP 10/325 TABLET PO PRN (18:33)
[2022-07-24] MEDS ORDERED: ALPRAZolam 1 MG TABLET PO PRN (18:36)
[2022-07-24] MEDS: rOPINIRole 1 MG TABLET PO SCH (20:26)
[2022-07-24] MEDS: Mirtazapine 15 MG TABLET PO SCH (20:26)
[2022-07-24] MEDS: Insulin DETEMIR 100 UNIT/ML X5UNITS SUBQ SCH (20:27)
[2022-07-25] MEDS: Ipratropium/Albuterol Neb 3 ML IH SCH ×4 (04:39→21:48)
[2022-07-25 06:13] LABS: Basophils % 0.1 %; Eosinophils % 0.1 %; Hematocrit 42.6 % (37.5-50.1); Hemoglobin 13.9 g/dL (12.9-16.9); Immature Granulocytes % 0.3 % (0-4); Lymphocytes # 0.7 K/mcL (0.6-4.6); Lymphocytes % 8.1 %; Mean Corpuscular HGB Conc 32.6 g/dL (31.6-35.5); Mean Corpuscular Hemoglobin 30.1 pg (28.0-33.3); Mean Corpuscular Volume 92.2 fL (83.0-100.0); Mean Platelet Volume 9.4 fL (9.4-12.4); Monocytes # 0.5 K/mcL (0.0-1.3); Monocytes % 6.2 %; Neutrophils # 7.4 K/mcL (1.6-8.9); Platelet Count 239 K/mcL (140-400); Red Blood Count 4.62 M/mcL (4.19-5.50); Red Cell Distribution Width 15.1 % (11.5-14.5); Segmented Neutrophils % 85.2 %; White Blood Count 8.7 K/mcL (4.3-11.1)
[2022-07-25 06:26] LABS: Prothrombin Time 22.1 Seconds (9.4-12.1)
[2022-07-25 06:38] LABS: BUN/Creatinine Ratio 35 (6-26); Blood Urea Nitrogen 24 mg/dL (8-23); Calcium 9.2 mg/dL (8.6-10.3); Carbon Dioxide 30 mEq/L (23-29); Chloride 104 mEq/L (98-107); Glucose 272 mg/dL (70-105); Osmolality,Calculated 308 (280-300); Potassium 3.9 mEq/L (3.5-5.1); Sodium 142 mEq/L (136-145)
[2022-07-25] MEDS: predniSONE 20 MG TABLET PO SCH (08:36)
[2022-07-25] MEDS: carvediloL 6.25 MG TABLET PO SCH (08:37)
[2022-07-25] MEDS: Baclofen 10 MG TABLET PO SCH (08:37)
[2022-07-25] MEDS: Loratadine 10 MG TABLET PO SCH (08:37)
[2022-07-25] MEDS: Insulin LISPRO 300 UNITS/3 ML VIAL SUBQ SCH ×4 (08:40→21:11)
[2022-07-25] MEDS: Furosemide 40 MG/4 ML VIAL IVP SCH ×2 (09:37→17:38)
[2022-07-25] MEDS: Fluticasone Propionate Nasal 50 MCG/SPRAY BOTTLE NS SCH (11:54)
[2022-07-25] MEDS: *HR* Rivaroxaban 10 MG TABLET PO SCH (17:39)
[2022-07-25] MEDS: 0.9 % Sodium Chloride 1,000 ML IVC SCH (20:09)
[2022-07-25] MEDS: Insulin DETEMIR 100 UNIT/ML X5UNITS SUBQ SCH (21:11)
[2022-07-25] MEDS: rOPINIRole 1 MG TABLET PO SCH (21:11)
[2022-07-25] MEDS: Mirtazapine 15 MG TABLET PO SCH (21:11)
[2022-07-26] MEDS: Ipratropium/Albuterol Neb 3 ML IH SCH ×4 (04:04→21:17)
[2022-07-26 04:14] LABS: BUN/Creatinine Ratio 41 (6-26); Blood Urea Nitrogen 29 mg/dL (8-23); Carbon Dioxide 33 mEq/L (23-29); Chloride 101 mEq/L (98-107); Glucose 184 mg/dL (70-105); Osmolality,Calculated 303 (280-300); Potassium 3.1 mEq/L (3.5-5.1); Sodium 141 mEq/L (136-145)
[2022-07-26] MEDS: Insulin LISPRO 300 UNITS/3 ML VIAL SUBQ SCH ×4 (08:19→20:07)
[2022-07-26] MEDS: Loratadine 10 MG TABLET PO SCH (08:32)
[2022-07-26] MEDS: carvediloL 6.25 MG TABLET PO SCH (08:32)
[2022-07-26] MEDS: Furosemide 40 MG/4 ML VIAL IVP SCH (08:32)
[2022-07-26] MEDS: Fluticasone Propionate Nasal 50 MCG/SPRAY BOTTLE NS SCH (08:33)
[2022-07-26] MEDS: Baclofen 10 MG TABLET PO SCH (08:33)
[2022-07-26] MEDS: predniSONE 20 MG TABLET PO SCH (08:33)
[2022-07-26] MEDS: *HR* Rivaroxaban 10 MG TABLET PO SCH (17:32)
[2022-07-26] MEDS: rOPINIRole 1 MG TABLET PO SCH (20:05)
[2022-07-26] MEDS: Insulin DETEMIR 100 UNIT/ML X5UNITS SUBQ SCH (20:05)
[2022-07-26] MEDS: Mirtazapine 15 MG TABLET PO SCH (20:05)
[2022-07-27 02:33] LABS: BUN/Creatinine Ratio 49 (6-26); Blood Urea Nitrogen 30 mg/dL (8-23); Carbon Dioxide 29 mEq/L (23-29); Chloride 102 mEq/L (98-107); Glucose 148 mg/dL (70-105); Osmolality,Calculated 293 (280-300); Potassium 4.2 mEq/L (3.5-5.1); Sodium 137 mEq/L (136-145)
[2022-07-27] MEDS: Ipratropium/Albuterol Neb 3 ML IH SCH ×3 (04:03→15:40)
[2022-07-27] MEDS ORDERED: Furosemide 40 MG TABLET PO SCH (09:00)
[2022-07-27] MEDS ORDERED: Furosemide 40 MG/4 ML VIAL IVP SCH (09:00)
[2022-07-27] MEDS: Loratadine 10 MG TABLET PO SCH (09:06)
[2022-07-27] MEDS: carvediloL 6.25 MG TABLET PO SCH (09:08)
[2022-07-27] MEDS: predniSONE 20 MG TABLET PO SCH (09:08)
[2022-07-27] MEDS: Fluticasone Propionate Nasal 50 MCG/SPRAY BOTTLE NS SCH (09:09)
[2022-07-27] MEDS: Baclofen 10 MG TABLET PO SCH (09:09)
[2022-07-27] MEDS: Insulin LISPRO 300 UNITS/3 ML VIAL SUBQ SCH ×2 (09:11→11:55)
[2022-07-27 11:08] VITALS: BP 116/52; PULSE 74; TEMP 97.5; O2SAT 100
== END 2022-07-27 15:57 | disposition home or self-care (01) | DRG 291 ==
LOC: 2NENU 15:41 → EMEROOARM 15:41 → SUATTDRO 18:44 → 2NENU 20:40 → SUATTDRO 07-24 18:33
PROVIDERS: ADMIT General Practice; ATTEND Internal Medicine